=== PATIENT | male | born 1955 | race Caucasian/White ===

== ENCOUNTER → 2017-04-14 | Outpatient (CLI) | payer OTHER ==
[~2017-04-14] MED LIST: REGADENOSON 0.4 MG/5 ML SYRINGE IV ONE
--- NOTE | 2017-04-14 12:25 | EST ---
DATE OF SERVICE: 04/14/2017 AGE: 61Y SEX: M HT: 69" WT: 160 lbs. Lexiscan Cardiolite Stress Test *Heart Rate Blood Pressure *Rest: 83 Rest: 128/57 * *Max. Achieved: 112 Maximum BP: 210/92 85% PMHR: 136 100% PMHR: 160 *METS: - INDICATIONS: Chest pain. MEDICATIONS: - Patient was given Lexiscan injection over a period of 15 seconds. Peak heart rate of 112 was achieved, maximum blood pressure of 210/92 mmHg was noted. Resting EKG shows normal sinus rhythm with normal NV interval and QRS duration and normal ST-T waves. No ST segment depression suggestive of ischemia was noted. FINAL IMPRESSION: 1. There is no evidence of any ST segment depression to suggest ischemia during Lexiscan injection. 2. The results of the nuclear study will follow.
--- NOTE | 2017-04-14 13:09 | NM ---
EXAMINATION TYPE: NM stress lexiscan cardiolite DATE OF EXAM: 04/14/2017 11:29 AM COMPARISON: NONE HISTORY: 61-year-old male chest pain and tachycardia. TECHNIQUE: After the intravenous administration of 10.67 mCi Tc 99m Sestamibi - Cardiolite resting S PECT images acquired 45 minutes post injection. The patient received 0.4mg Lexiscan, 26.5 mCi Tc 99m Sestamibi - Stress images obtained [address] injection FINDINGS: The technologist remarks that the patient could not successfully be gated. Review of stress and rest SPECT images shows possible moderate size area of perfusion abnormality along the mid to basal latera l wall on the coronal images. LVEF could not be calculated. TID is calculated at 0.92, within normal limits. IMPRESSION: Limited exam as the patient could not be successfully gated. LVEF could therefore not be calculated a nd wall motion is not assessed. There is possible moderate sized area of reversibility along the mid to basal lateral wall. Further clinical correlation recommended.
== END | disposition home or self-care (01) ==
LOC: RADNMMAIN 08:20
PROVIDERS: ATTEND Family Medicine
DX: R00.0 Tachycardia, unspecified (principal)
CPT/HCPCS: 93017; 78452; A9500; J2785

== ENCOUNTER → 2018-03-13 | Outpatient (CLI) | payer OTHER ==
--- NOTE | 2018-03-13 10:59 | XR ---
EXAMINATION TYPE: XR chest 2V DATE OF EXAM: 03/13/2018 COMPARISON: NONE HISTORY: Shortness of breath TECHNIQUE: Frontal and lateral views of the chest are obtained. FINDINGS: Scattered senescent parenchymal changes noted. Nodular density right middle lobe. This has been present on prior CT and is compatible with remote gr anulomatous disease. No evidence for infiltrate. No evidence for atelectasis. Heart size is stable. Mediastinal structures are stable and grossly unremarkable. No evidence for hilar prominence. Degenerative changes dorsal spine. IMPRESSION: 1. No evidence for acute pulmonary disease.
== END | disposition home or self-care (01) ==
LOC: RADXRMAIN 10:18
PROVIDERS: ATTEND Family Medicine
DX: J18.9 Pneumonia, unspecified organism (principal)
CPT/HCPCS: 71046

== ENCOUNTER 2020-04-20 12:15 | Inpatient (IN) | payer MEDICARE ==
--- NOTE | 2020-04-20 13:22 | ED ---
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 The states patient was eating his meal this morning when he developed a sudden onset of tonic-clonic seizure that lasted approximately 10 minutes. states afterwards the patient was confused and unable to balance himself. states the patient had nausea and vomiting 2 days ago and one episode of diarrhea yesterday. States this morning the patient had his normal physical therapy and afterwards developed the seizure. Denies any recent changes to medications. Denies any night sweats fevers or chills. History of COPD but no oxygen use at home. - Related Data Home Medications Medication Instructions Recorded Confirmed Aspirin EC [Ecotrin] 325 mg PO DAILY 05/15/19 05/15/19 Atorvastatin [Lipitor] 80 mg PO HS 05/15/19 05/15/19 Clopidogrel [Plavix] 75 mg PO DAILY 05/15/19 05/15/19 Gabapentin [Neurontin] 100 mg PO TID 05/15/19 05/15/19 Isosorbide Mononitrate ER [Imdur] 30 mg PO DAILY 05/15/19 05/15/19 Lisinopril [Zestril] 10 mg PO DAILY 05/15/19 05/15/19 Metoprolol Tartrate [Lopressor] 25 mg PO DAILY 05/15/19 05/15/19 Nitroglycerin Sl Tabs [Nitrostat] 0.4 mg SUBLINGUAL Q5M PRN 05/15/19 05/15/19 Sertraline [Zoloft] 100 mg PO HS 05/15/19 05/15/19 metFORMIN HCL ER [Glucophage Xr] 1,000 mg PO DAILY 05/15/19 05/15/19 Allergies Allergy/AdvReac Type Severity Reaction Status Date / Time No Known Allergies Allergy Verified 05/15/19 11:39 Review of Systems ROS Statement: Those systems with pertinent positive or pertinent negative responses have been documented in the HPI. ROS Other: All systems not noted in ROS Statement are negative. Past Medical History Past Medical History: Chest Pain / Angina, CVA/TIA, Diabetes Mellitus, Hyperlipi demia, Hypertension History of Any Multi-Drug Resistant Organisms: None Reported Past Surgical History: No Surgical Hx Reported Past Psychological History: No Psychological Hx Reported Smoking Status: Former smoker Past Alcohol Use History: None Reported Past Drug Use History: None Reported General Exam Limitations: no limitations General appearance: alert, in no apparent distress Head exam: Present: atraumatic, normocephalic, normal inspection Eye exam: Present: normal appearance, PERRL, EOMI Pupils: Present: normal accommodation ENT exam: Present: normal exam, mucous membranes moist Neck exam: Present: normal inspection, full ROM. Absent: tenderness Respiratory exam: Present: normal lung sounds bilaterally. Absent: respiratory distress, wheezes Cardiovascular Exam: Present: regular rate, normal rhythm, normal heart sounds Extremities exam: Present: normal inspection, full ROM Back exam: Present: normal inspection, full ROM Neurological exam: Present: alert, oriented X3, other (Left-sided paralysis at baseline) Psychiatric exam: Present: normal affect, normal mood Skin exam: Present: warm, dry, intact, normal color Course Vital Signs 04/20/20 04/20/20 04/20/20 12:30 13:00 13:20 Temperature 97.8 F Pulse Rate 92 94 89 Respiratory 22 20 17 Rate Blood Pressure 110/72 96/72 95/73 O2 Sat by Pulse 92 L 95 96 Oximetry 04/20/20 04/20/20 04/20/20 13:40 14:00 14:30 Temperature Pulse Rate 88 82 81 Respiratory 24 19 17 Rate Blood Pressure 105/73 105/73 95/38 O2 Sat by Pulse 97 97 97 Oximetry 04/20/20 15:30 Temperature Pulse Rate 70 Respiratory 15 Rate Blood Pressure 99/66 O2 Sat by Pulse 99 Oximetry Medical Decision Making - Medical Decision Making Patient is 64-year-old male with history of CVA and left-sided paralysis at baseline presenting to emergency Department with a chief complaint of a seizure. Patient was initially hypotensive and started on IV fluids. Patient does have a lactic acid of 8.5 which is likely secondary to the seizure. According to the , this was supposedly tonic clonic seizure with a postictal state. Patient has no previous history of seizures. Slight increase in anion gap secondary to the lactic acidosis. Patient does have leukocytosis of [address] of the brain is negative for new acute processes. I spoke with who would like to admit the patient for further medical management. Case discussed with Neurology on consult - Lab Data Result diagrams: 04/20/20 12:32 04/20/20 12:32 Lab Results 04/20/20 04/20/20 04/20/20 Range/Units 12:32 12:32 13:20 WBC 15.2 H (3.8-10.6) k/uL RBC 5.21 (4.30-5.90) m/uL Hgb 11.5 L (13.0-17.5) gm/dL Hct 38.8 L (39.0-53.0) % MCV 74.4 L (80.0-100.0) fL MCH 22.0 L (25.0-35.0) pg MCHC 29.5 L (31.0-37.0) g/dL RDW 16.5 H (11.5-15.5) % Plt Count 518 H (150-450) k/uL Neutrophils % 79 % Lymphocytes % 14 % Monocytes % 5 % Eosinophils % 1 % Basophils % 0 % Neutrophils # 12.0 H (1.3-7.7) k/uL Lymphocytes # 2.1 (1.0-4.8) k/uL Monocytes # 0.7 (0-1.0) k/uL Eosinophils # 0.1 (0-0.7) k/uL Basophils # 0.1 (0-0.2) k/uL Hypochromasia Slight Anisocytosis Slight Microcytosis Slight Sodium 136 L (137-145) mmol/L Potassium 5.3 H (3.5-5.1) mmol/L Chloride 103 (98-107) mmol/L Carbon Dioxide 18 L (22-30) mmol/L Anion Gap 15 mmol/L BUN 14 (9-20) mg/dL Creatinine 0.84 (0.66-1.25) mg/dL Est GFR (CKD-EPI)AfAm >90 (>60 ml/min/1.73 sqM) Est GFR (CKD-EPI)NonAf >90 (>60 ml/min/1.73 sqM) Glucose 191 H (74-99) mg/dL POC Glucose (mg/dL) (75-99) mg/dL POC Glu Director Of Rehabilitation ID Plasma Lactic Acid Rod 8.5 H* (0.7-2.0) mmol/L Calcium 9.4 (8.4-10.2) mg/dL Total Bilirubin 0.2 (0.2-1.3) mg/dL AST 26 (17-59) U/L ALT 23 (4-49) U/L Alkaline Phosphatase 135 H (38-126) U/L Total Protein 6.7 (6.3-8.2) g/dL Albumin 3.9 (3.5-5.0) g/dL 04/20/20 Range/Units 13:23 WBC (3.8-10.6) k/uL RBC (4.30-5.90) m/uL Hgb (13.0-17.5) gm/dL Hct (39.0-53.0) % MCV (80.0-100.0) fL MCH (25.0-35.0) pg MCHC (31.0-37.0) g/dL RDW (11.5-15.5) % Plt Count (150-450) k/uL Neutrophils % % Lymphocytes % % Monocytes % % Eosinophils % % Basophils % % Neutrophils # (1.3-7.7) k/uL Lymphocytes # (1.0-4.8) k/uL Monocytes # (0-1.0) k/uL Eosinophils # (0-0.7) k/uL Basophils # (0-0.2) k/uL Hypochromasia Anisocytosis Microcytosis Sodium (137-145) mmol/L Potassium (3.5-5.1) mmol/L Chloride (98-107) mmol/L Carbon Dioxide (22-30) mmol/L Anion Gap mmol/L BUN (9-20) mg/dL Creatinine (0.66-1.25) mg/dL Est GFR (CKD-EPI)AfAm (>60 ml/min/1.73 sqM) Est GFR (CKD-EPI)NonAf (>60 ml/min/1.73 sqM) Glucose (74-99) mg/dL POC Glucose (mg/dL) 208 H (75-99) mg/dL POC Glu Director Of Rehabilitation ID Sarah Peres Plasma Lactic Acid Rod (0.7-2.0) mmol/L Calcium (8.4-10.2) mg/dL Total Bilirubin (0.2-1.3) mg/dL AST (17-59) U/L ALT (4-49) U/L Alkaline Phosphatase (38-126) U/L Total Protein (6.3-8.2) g/dL Albumin (3.5-5.0) g/dL - EKG Data EKG Comments: Sinus rhythm. Q waves in lead 3 and aVF.. Similar EKG to 2019 Ventricular rate 92, DE 168, QRS 92, QTC 455. Disposition Clinical Impression: New onset seizure Disposition: ADMITTED IP TO THIS HOSP Condition: Good Instructions (If sedation given, give patient instructions): New-Onset Seizure in Adults (ED) Additional Instructions: She will be admitted Is patient prescribed a controlled substance at d/c from ED?: No Referrals: Jordan Mustafa DO [Primary Care Provider] - 1-2 days Time of Disposition: 16:00
[2020-04-20 13:25] LABS: Glucose,Whole Blood 208 mg/dL (75-99)
[2020-04-20 13:32] LABS: Anisocytosis Slight; Basophils # (A) 0.1 k/uL (0-0.2); Basophils % (A) 0 %; Eosinophils # (A) 0.1 k/uL (0-0.7); Eosinophils % (A) 1 %; HCT 38.8 % (39.0-53.0); HGB 11.5 gm/dL (13.0-17.5); Hypochromasia Slight; Lymphocytes # (A) 2.1 k/uL (1.0-4.8); Lymphocytes % (A) 14 %; MCHC 29.5 g/dL (31.0-37.0); MCV 74.4 fL (80.0-100.0); Mean Platelet Volume 8.8; Microcytosis Slight; Monocytes # (A) 0.7 k/uL (0-1.0); Monocytes % (A) 5 %; Neutrophils % (A) 79 %; Platelet Count 518 k/uL (150-450); RBC 5.21 m/uL (4.30-5.90); RDW 16.5 % (11.5-15.5); WBC 15.2 k/uL (3.8-10.6)
[2020-04-20 13:46] LABS: ALT 23 U/L (4-49); AST 26 U/L (17-59); African American GFR (CKD) >90 (>60 ml/min/1.73 sqM); Albumin 3.9 g/dL (3.5-5.0); Alkaline Phosphatase 135 U/L (38-126); Anion Gap 15 mmol/L; Blood Urea Nitrogen 14 mg/dL (9-20); Calcium 9.4 mg/dL (8.4-10.2); Carbon Dioxide 18 mmol/L (22-30); Chloride 103 mmol/L (98-107); Glucose 191 mg/dL (74-99); Non-African American GFR(CKD) >90 (>60 ml/min/1.73 sqM); Potassium 5.3 mmol/L (3.5-5.1); Sodium 136 mmol/L (137-145); Total Bilirubin 0.2 mg/dL (0.2-1.3); Total Protein 6.7 g/dL (6.3-8.2)
[2020-04-20] MEDS ORDERED: SODIUM CHLORIDE 0.9% 1,000 ML IV STA (13:57)
--- NOTE | 2020-04-20 14:40 | CT ---
EXAMINATION TYPE: CT brain wo con DATE OF EXAM: 04/20/2020 COMPARISON: HISTORY: Seizure activity, history of prior CVA TECHNIQUE: Examination was done in axial plane without intravenous contrast. Coronal and sagittal r econstructions performed. CT DLP: 1217.4 mGycm Automated exposure control for dose reduction was used. FINDINGS: There is no evidence of acute intracranial hemorrhage, acute ischemic changes, mass, mass-effect, or extra-axial fluid collection. There is no effacement of cerebral sulci or basal subarachnoid cister ns. There is no hydrocephalus. There is no midline shift. Kramer-white matter distinction is preserv ed. Mild generalized supratentorial volume loss. Right-sided asymmetric ventriculomegaly secondary to ext ensive encephalomalacia right MCA territory and corresponding volume loss. Some stable linearly distr ibuted calcifications in the region of the right glynn radiata and centrum semiovale. Atheroscleroti c calcifications within the carotid siphons. Trace mucosal thickening ethmoid air cells. Orbits and globes are intact. IMPRESSION: 1. Unchanged mild generalized atrophy and old right MCA territory infarct with associated encephaloma lacia and asymmetric ventriculomegaly on the right. 2. No acute intracranial abnormality seen.
[2020-04-20] MEDS ORDERED: NALOXONE 0.4 MG/ML 1 ML VIAL IV PRN (15:36)
[2020-04-20] MEDS ORDERED: LORazepam 2 MG/ML INJ IV PRN (15:36)
[2020-04-20] MEDS ORDERED: MORPHINE SULFATE 4 MG/ML SYRINGE IV PRN (15:36)
[2020-04-20] MEDS: SODIUM CHLORIDE 0.9% 1,000 ML IV SCH (16:30)
[2020-04-20] MEDS ORDERED: NITROGLYCERIN SL TABS 0.4 MG TAB SUBLINGUAL PRN (17:10)
[2020-04-20] MEDS: SERTRALINE 100 MG TAB PO SCH (20:14)
[2020-04-20] MEDS: ATORVASTATIN 80 MG TAB PO SCH (20:15)
[2020-04-20] MEDS: GABAPENTIN 100 MG CAP PO SCH (20:15)
--- NOTE | 2020-04-20 23:30 | P.CNNES ---
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 Patient never had any history of seizures. Patient lives with his and her daughter. Patient was eating his meal this morning when he developed sudden onset of tonic-clonic seizure that lasted for about 10 minutes. Post ictally, patient was confused and unable to balance himself. Patient had nausea and vomiting 2 days ago and one episode of diarrhea yesterday. This morning patient had his normal physical therapy and afterwards developed the seizure. Patient has history of COPD. Patient arrived to the ER at 12:15 PM. Patient's blood pressure on arrival was 110/72, pulse rate 92 and patient's temperature 97.8. Patient had computed tomography scan of the head, which revealed unchanged mild generalized atrophy and old right MCA territory infarct with associated encephalomalacia and asymmetric ventriculomegaly on the right. No acute process. I reviewed computed tomogra phy scan of the head and agree with the findings. EKG showed normal sinus rhythm with left anterior fascicular block. Patient's WBC 15.2 hemoglobin 11.5, platelets 518. Sodium 136 potassium 5.3 normal renal functions. Liver panel normal. Patient at present feels fine. Patient states he had history of stroke 4 years ago. He has smoked 1-1/2 pack per day since age 19, stopped smoking after his stroke. He has diabetes diagnosed 1-1/2 years ago, also hypertension. No previous history of seizures. Patient currently takes Plavix 75 mg and Lipitor 80 mg. Also on lisinopril metformin gabapentin, metoprolol, sertraline. Review of Systems Patient denies headache, double vision, loss of vision. Patient does have some numbness and weakness of left side from stroke. Denies chest pain shortness of breath wheezing or cough. Denies nausea vomiting diarrhea abdominal pain. All other review of systems unremarkable. Past Medical History Past Medical History: Chest Pain / Angina, CVA/TIA, Diabetes Mellitus, Hyperlipidemia, Hypertension, Sleep Apnea/CPAP/BIPAP History of Any Multi-Drug Resistant Organisms: None Reported Past Surgical History: No Surgical Hx Reported Past Anesthesia/Blood Transfusion Reactions: No Reported Reaction Past Psychological History: No Psychological Hx Reported Smoking Status: Former smoker Past Alcohol Use History: None Reported Past Drug Use History: None Reported - Past Family History Father Additional Family Medical History / Comment(s): spring 2019 of old age Mother Family Medical History: Myocardial Infarction ([place]) Additional Family Medical History / Comment(s): 1997 Medications and Allergies Home Medications Medication Instructions Recorded Confirmed Type Atorvastatin [Lipitor] 80 mg PO HS 05/15/19 04/20/20 History Clopidogrel [Plavix] 75 mg PO DAILY 05/15/19 04/20/20 History Gabapentin [Neurontin] 100 mg PO TID 05/15/19 04/20/20 History Isosorbide Mononitrate ER [Imdur] 30 mg PO DAILY 05/15/19 04/20/20 History Lisinopril [Zestril] 10 mg PO DAILY 05/15/19 04/20/20 History Metoprolol Tartrate [Lopressor] 25 mg PO DAILY 05/15/19 04/20/20 History Sertraline [Zoloft] 100 mg PO HS 05/15/19 04/20/20 History metFORMIN HCL ER [Glucophage Xr] 1,000 mg PO DAILY 05/15/19 04/20/20 History Albuterol Inhaler [Ventolin Hfa 2 puff INHALATION RT-Q6H PRN 04/20/20 04/20/20 History Inhaler] Magnesium Oxide 400 mg PO DAILY 04/20/20 04/20/20 History Menthol [Biofreeze] 1 applic TOPICAL DAILY 04/20/20 04/20/20 History Allergies Allergy/AdvReac Type Severity Reaction Status Date / Time No Known Allergies Allergy Verified 04/20/20 19:08 Physical Examination - Vital Signs Vital Signs: Vital Signs Temp Pulse Pulse Resp BP BP Pulse Ox 04/20/20 20:00 18 04/20/20 18:33 98.2 F 76 18 111/68 98 04/20/20 17:30 99.4 F 62 18 120/74 100 04/20/20 16:30 71 12 110/72 94 L 04/20/20 16:00 75 10 L 102/67 98 04/20/20 15:30 70 15 99/66 99 04/20/20 14:30 81 17 95/38 97 06/01/20 14:00 82 19 105/73 97 04/20/20 13:40 88 24 105/73 97 04/20/20 13:20 89 17 95/73 96 04/20/20 13:00 97.8 F 94 20 96/72 95 04/20/20 12:30 92 22 110/72 92 L Intake and Output 04/20/20 04/20/20 04/21/20 14:59 22:59 06:59 Other: Voiding Method Urinal # Voids 1 Weight 77.111 kg 77.111 kg On examination patient is a late middle aged male, in no acute distress. Patient is alert and awake fully oriented. Patient knows it is April 2020 and that he is in [facility] in [facility] and name of the current president. Speech is slightly dysarthric but no aphasia. On cranial nerve examination pupils are round and reactive to light, visual ferreira are full on confrontation. Extraocular muscles are intact. Patient has mild left-sided facial weakness central type. Tongue protrudes the midline. Palatal elevation and sensation normal. Hearing and shoulder shrug normal. On muscle strength testing the strength is normal in the right arm and right leg. On the left side, his left arm is very spastic, left ankle is about 4-, hip flexion 4-. Patient has brisk reflexes on the left with Babinski on the left. Sensory to to uch feels different in the left side of the body, states as if it is swollen on the left. No ataxia for [id number] on the right, cannot perform on the left. Tone is increased on the left side. Bulk of muscles normal. Gait deferred. No obvious bruit, S1 and S2 audible. Mild peripheral edema. Abdomen soft nontender. Chest is clear. Results - Laboratory Findings CBC and BMP: 04/20/20 12:32 04/20/20 12:32 Abnormal Lab Findings: Abnormal Labs 04/20/20 04/20/20 04/20/20 12:32 12:32 13:20 WBC 15.2 H Hgb 11.5 L Hct 38.8 L MCV 74.4 L MCH 22.0 L MCHC 29.5 L RDW 16.5 H Plt Count 518 H Neutrophils # 12.0 H Sodium 136 L Potassium 5.3 H Carbon Dioxide 18 L Glucose 191 H POC Glucose (mg/dL) Plasma Lactic Acid Rod 8.5 H* Alkaline Phosphatase 135 H 04/20/20 13:23 WBC Hgb Hct MCV MCH MCHC RDW Plt Count Neutrophils # Sodium Potassium Carbon Dioxide Glucose POC Glucose (mg/dL) 208 H Plasma Lactic Acid Rod Alkaline Phosphatase Assessment and Plan Assessment: * 64-year-old male admitted with new onset seizure, likely secondary generalized tonic-clonic seizure. 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 * History of CVA with left hemiparesis 4 years ago. * Hypertension * Diabetes * X tobacco use * Obesity Plan: * EEG in the morning. * Patient may be a candidate for long-term antiepileptic medication. * Neurology will follow.
[2020-04-21] MEDS: SODIUM CHLORIDE 0.9% 1,000 ML IV SCH ×2 (06:24→16:36)
[2020-04-21 07:03] LABS: Glucose,Whole Blood 125 mg/dL (75-99)
[2020-04-21] MEDS: metFORMIN 500 MG TAB PO SCH ×2 (07:53→20:35)
[2020-04-21] MEDS: GABAPENTIN 100 MG CAP PO SCH ×3 (07:53→20:35)
[2020-04-21] MEDS: CLOPIDOGREL 75 MG TAB PO SCH (07:53)
[2020-04-21] MEDS: ISOSORBIDE MONONITRATE ER 30 MG TAB.ER.24H PO SCH (07:53)
[2020-04-21] MEDS: METOPROLOL TARTRATE 25 MG TAB PO SCH (07:54)
[2020-04-21] MEDS: LISINOPRIL 10 MG TAB PO SCH (07:54)
[2020-04-21] MEDS ORDERED: ASPIRIN 325 MG TAB PO SCH (09:00)
[2020-04-21] MEDS ORDERED: ALBUTEROL NEBULIZED 2.5 MG/3 ML INHALATION PRN (10:35)
[2020-04-21 11:25] LABS: Glucose,Whole Blood 133 mg/dL (75-99)
[2020-04-21] MEDS: MAGNESIUM OXIDE 400 MG TAB PO SCH (11:44)
[2020-04-21] MEDS: METHYL SALICYLATE/MENTHOL CREAM 5 OZ TOPICAL SCH (11:46)
[2020-04-21 13:08] LABS: Anisocytosis Slight; HCT 33.4 % (39.0-53.0); HGB 10.3 gm/dL (13.0-17.5); Hypochromasia Marked; MCH 23.4 pg (25.0-35.0); MCHC 30.9 g/dL (31.0-37.0); MCV 75.8 fL (80.0-100.0); Mean Platelet Volume 7.6; Microcytosis Slight; Platelet Count 389 k/uL (150-450); RBC 4.41 m/uL (4.30-5.90); RDW 16.4 % (11.5-15.5)
[2020-04-21 13:21] LABS: African American GFR (CKD) >90 (>60 ml/min/1.73 sqM); Anion Gap 9 mmol/L; Blood Urea Nitrogen 11 mg/dL (9-20); Calcium 8.5 mg/dL (8.4-10.2); Carbon Dioxide 22 mmol/L (22-30); Chloride 105 mmol/L (98-107); Glucose 118 mg/dL (74-99); Non-African American GFR(CKD) >90 (>60 ml/min/1.73 sqM); Potassium 4.4 mmol/L (3.5-5.1); Sodium 136 mmol/L (137-145)
--- NOTE | 2020-04-21 15:47 | EEG ---
ELECTROENCEPHALOGRAM REPORT DATE OF SERVICE: 04/21/2020. PREAMBLE: This is a 64-year-old male with new onset seizure. Patient has history of a stroke. EEG FINDINGS: A routine 21 channel awake EEG recorded utilizing 10/20 international system with bipolar and referential montages. The background consists of well developed, well regulated, moderate voltage activity in 8 Hz alpha. Background is posterior dominant and reactive to eye opening and closing. Photic driving response was seen with some flash frequencies. There is near continuous focal slowing in dysrhythmic delta and theta activity in the right temporal region. Occasional sharp waves were seen in the right mid temporal region. Different stages of sleep were not seen. No electrographic seizures recorded. EKG channel lead revealed no arrhythmia. IMPRESSION: This is an abnormal EEG due to focal slowing with some sharp appearing waves over the right temporal region. This is suggestive of focal cortical neural dysfunction with underlying cortical irritability and tendency for seizures. MMBRITTANYL / IJN: [id number] / DWAYNE
[2020-04-21] MEDS: levETIRAcetam 500 MG TAB PO SCH (16:27)
[2020-04-21 16:49] LABS: Glucose,Whole Blood 142 mg/dL (75-99)
--- NOTE | 2020-04-21 17:12 | P.PN ---
Subjective Progress Note Date: 04/21/20 Patient denies any further seizures. Laying comfortably in the bed. Objective - Vital Signs Vital signs: Vital Signs Temp 97.9 F 04/21/20 15:00 Pulse 54 L 04/21/20 15:00 Resp 16 04/21/20 16:27 BP 89/53 04/21/20 15:00 Pulse Ox 99 04/21/20 15:00 Intake & Output 04/20/20 04/21/20 04/21/20 18:59 06:59 18:59 Output Total 100 500 Balance -100 -500 Weight 77.111 kg Output: Urine 100 500 Other: Voiding Method Urinal Urinal # Voids 1 1 - Exam Unchanged. Laying comfortably in the bed. Continues to have spastic left hemiparesis. - Labs CBC & Chem 7: 04/21/20 12:29 04/21/20 12:29 Labs: Abnormal Lab Results - Last 24 Hours (Table) 04/21/20 04/21/20 04/21/20 Range/Units 07:01 11:23 12:29 WBC 13.0 H (3.8-10.6) k/uL Hgb 10.3 L (13.0-17.5) gm/dL Hct 33.4 L (39.0-53.0) % MCV 75.8 L (80.0-100.0) fL MCH 23.4 L (25.0-35.0) pg MCHC 30.9 L (31.0-37.0) g/dL RDW 16.4 H (11.5-15.5) % Sodium (137-145) mmol/L Creatinine (0.66-1.25) mg/dL Glucose (74-99) mg/dL POC Glucose (mg/dL) 125 H 133 H (75-99) mg/dL 04/21/20 04/21/20 Range/Units 12:29 16:48 WBC (3.8-10.6) k/uL Hgb (13.0-17.5) gm/dL Hct (39.0-53.0) % MCV (80.0-100.0) fL MCH (25.0-35.0) pg MCHC (31.0-37.0) g/dL RDW (11.5-15.5) % Sodium 136 L (137-145) mmol/L Creatinine 0.64 L (0.66-1.25) mg/dL Glucose 118 H (74-99) mg/dL POC Glucose (mg/dL) 142 H (75-99) mg/dL Assessment and Plan Assessment: * 64-year-old male admitted with new onset seizure, likely secondary generalized tonic-clonic seizure. 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 * History of CVA with left hemiparesis 4 years ago. * Hypertension * Diabetes * X tobacco use * Obesity Plan: * EEG revealed focal slowing with some sharp-appearing waves over the right temporal region. This is suggestive of focal cortical neuronal dysfunction with underlying cortical irritability and tendency for seizures. Patient to be started on Keppra 500 mg twice a day. * Neurologically clear for discharge.
[2020-04-21] MEDS ORDERED: ONDANSETRON 4 MG/2 ML VIAL IVP PRN (20:02)
[2020-04-21] MEDS ORDERED: CALCIUM CARBONATE 500 MG CHEWABLE PO PRN (20:02)
[2020-04-21] MEDS ORDERED: MELATONIN 3 MG TABLET PO PRN (20:02)
[2020-04-21] MEDS ORDERED: MAGNESIUM HYDROXIDE 2,400 MG/10 ML CUP PO PRN (20:02)
[2020-04-21] MEDS ORDERED: MAG HYDROX/AL HYDROX/SIMETH 30 ML CUP PO PRN (20:02)
[2020-04-21] MEDS ORDERED: ACETAMINOPHEN TAB 325 MG TAB PO PRN (20:02)
[2020-04-21] MEDS ORDERED: LACTULOSE 20 GM/30 ML CUP PO PRN (20:02)
--- NOTE | 2020-04-21 20:04 | P.HPIM ---
History of Present Illness H&P Date: 04/21/20 Chief Complaint: Shaking History of presenting complaint: This is a pleasant 64-year-old patient of Dr. Mustafa. Chronic stable medical conditions include diabetes, hypertension, hyperlipidemia, arthritis sleep apnea. Patient is had a prior stroke. With left arm and left leg weakness. Patient did use a brace. And a walker. As per the negative from the ER informed him that patient is eating his meal in the morning and he developed sudden onset of tonic-clonic seizures that lasted about 10 minutes. Patient was confused after that unable to balance himself. Patient had some nausea vomiting 2 days before and one episode of diarrhea the day before. Otherwise the morning prior to the episode patient was in normal self. No recent change of medications. We did talk to the patient this morning patient really didn't didn't remember much of the episode. At baseline the speech is also slow. Review of systems: GEN.: Tired EYES: None HEENT: None NECK: None RESPIRATORY: None CARDIOVASCULAR: None GASTROINTESTINAL: None GENITOURINARY: None MUSCULOSKELETAL: None LYMPHATICS: None HEMATOLOGICAL: None PSYCHIATRY: None NEUROLOGICAL: As above and left-sided weakness and speech is slightly slow does use a walker Past medical history to include: Stroke, diabetes, hypertension, hyperlipidemia, obstructive sleep apnea, Social history: Patient did smoke in the past. No alcohol.. . Physical examination: VITAL SIGNS: 97.8, 94, 20, 96/72, peripheral percent on 2 L upon presentation] GENERAL: BMI 24.4, laying in bed, awake. EYES: Pupils equal. Conjunctiva normal. HEENT: External appearance of nose and ears normal, oral cavity grossly normal. NECK: JVD not raised; masses not palpable. HEART: First and second heart sounds are normal; no edema. LUNGS: Respiratory rate normal; decreased breath sounds. ABDOMEN: Soft, nontender, liver spleen not palpable, no masses palpable. PSYCH: Awake able to answer questionsl. NEUROLOGICAL: Cranial nerves grossly intact; no facial asymmetry, speech is slightly slow, power on the left side is 3/5. LYMPHATICS: No lymph nodes palpable in the axilla and neck INVESTIGATIONS, reviewed in the clinical context: White count 15.2 hemoglobin 11.5 platelets 518 potassium 5.3 creatinine 0.84 Lactic acid 8.5, COVID-19 PCR-not detected Computed tomography scan of the brain without contrast-myogenous atrophy with old right MCA territory infarct with associated encephalomalacia, nil acute EKG tracing personally reviewed by me-normal sinus rhythm Assessment: -New onset tonic-clonic seizures in a patient with a prior history of stroke, with encephalomalacia, does increase a property of recurrent strokes. -Left-sided paresis from prior stroke -Diabetes mellitus type 2 -Hyperlipidemia -Essential hypertension -Obstructive sleep apnea Plan: Neuro checks will be done. Seizure precautions. EEG has been ordered. Neurology was consulted. Home medications to continue. Lovenox for DVT prophylaxis. Care was discussed with the patient. Past Medical History Past Medical History: Chest Pain / Angina, CVA/TIA, Diabetes Mellitus, Hyperlipidemia, Hypertension, Sleep Apnea/CPAP/BIPAP History of Any Multi-Drug Resistant Organisms: None Reported Past Surgical History: No Surgical Hx Reported Past Anesthesia/Blood Transfusion Reactions: No Reported Reaction Past Psychological History: No Psychological Hx Reported Smoking Status: Former smoker Past Alcohol Use History: None Reported Past Drug Use History: None Reported - Past Family History Father Additional Family Medical History / Comment(s): spring 2019 of old age Mother Family Medical History: Myocardial Infarction ([place]) Additional Family Medical History / Comment(s): 1997 Medications and Allergies Home Medications Medication Instructions Recorded Confirmed Type Atorvastatin [Lipitor] 80 mg PO HS 05/15/19 04/20/20 History Clopidogrel [Plavix] 75 mg PO DAILY 05/15/19 04/20/20 History Gabapentin [Neurontin] 100 mg PO TID 05/15/19 04/20/20 History Isosorbide Mononitrate ER [Imdur] 30 mg PO DAILY 05/15/19 04/20/20 History Lisinopril [Zestril] 10 mg PO DAILY 05/15/19 04/20/20 History Metoprolol Tartrate [Lopressor] 25 mg PO DAILY 05/15/19 04/20/20 History Sertraline [Zoloft] 100 mg PO HS 05/15/19 04/20/20 History metFORMIN HCL ER [Glucophage Xr] 1,000 mg PO DAILY 05/15/19 04/20/20 History Albuterol Inhaler [Ventolin Hfa 2 puff INHALATION RT-Q6H PRN 04/20/20 04/20/20 History Inhaler] Magnesium Oxide 400 mg PO DAILY 04/20/20 04/20/20 History Menthol [Biofreeze] 1 applic TOPICAL DAILY 04/20/20 04/20/20 History Allergies Allergy/AdvReac Type Severity Reaction Status Date / Time No Known Allergies Allergy Verified 04/20/20 19:08 Physical Exam Vitals: Vital Signs Temp Pulse Pulse Resp BP BP Pulse Ox 04/21/20 07:00 97.8 F 64 17 109/68 99 04/21/20 04:00 16 04/21/20 02:05 97.7 F 67 16 131/83 98 04/20/20 20:00 18 04/20/20 18:33 98.2 F 76 18 111/68 98 04/20/20 17:30 99.4 F 62 18 120/74 100 04/20/20 16:30 71 12 110/72 94 L 04/20/20 16:00 75 10 L 102/67 98 04/20/20 15:30 70 15 99/66 99 04/20/20 14:30 81 17 95/38 97 04/20/20 14:00 82 19 105/73 97 04/20/20 13:40 88 24 105/73 97 04/20/20 13:20 89 17 95/73 96 04/20/20 13:00 97.8 F 94 20 96/72 95 04/20/20 12:30 92 22 110/72 92 L Intake and Output 04/20/20 04/21/20 04/21/20 22:59 06:59 14:59 Output Total 100 Balance -100 Output: Urine 100 Other: Voiding Method Urinal Urinal # Voids 1 1 Weight 77.111 kg Results CBC & Chem 7: 04/21/20 12:29 04/21/20 12:29 Labs: Abnormal Lab Results - Last 24 Hours (Table) 04/20/20 04/20/20 04/20/20 Range/Units 12:32 12:32 13:20 WBC 15.2 H (3.8-10.6) k/uL Hgb 11.5 L (13.0-17.5) gm/dL Hct 38.8 L (39.0-53.0) % MCV 74.4 L (80.0-100.0) fL MCH 22.0 L (25.0-35.0) pg MCHC 29.5 L (31.0-37.0) g/dL RDW 16.5 H (11.5-15.5) % Plt Count 518 H (150-450) k/uL Neutrophils # 12.0 H (1.3-7.7) k/uL Sodium 136 L (137-145) mmol/L Potassium 5.3 H (3.5-5.1) mmol/L Carbon Dioxide 18 L (22-30) mmol/L Glucose 191 H (74-99) mg/dL POC Glucose (mg/dL) (75-99) mg/dL Plasma Lactic Acid Rod 8.5 H* (0.7-2.0) mmol/L Alkaline Phosphatase 135 H (38-126) U/L 04/20/20 04/21/20 Range/Units 13:23 07:01 WBC (3.8-10.6) k/uL Hgb (13.0-17.5) gm/dL Hct (39.0-53.0) % MCV (80.0-100.0) fL MCH (25.0-35.0) pg MCHC (31.0-37.0) g/dL RDW (11.5-15.5) % Plt Count (150-450) k/uL Neutrophils # (1.3-7.7) k/uL Sodium (137-145) mmol/L Potassium (3.5-5.1) mmol/L Carbon Dioxide (22-30) mmol/L Glucose (74-99) mg/dL POC Glucose (mg/dL) 208 H 125 H (75-99) mg/dL Plasma Lactic Acid Rod (0.7-2.0) mmol/L Alkaline Phosphatase (38-126) U/L Thrombosis Risk Factor Assmnt - Choose All That Apply Each Risk Factor Represents 2 Points: Age 61-74 years Thrombosis Risk Factor Assessment Total Risk Factor Score: 2 Thrombosis Risk Factor Assessment Level: Low Risk
[2020-04-21] MEDS: ATORVASTATIN 80 MG TAB PO SCH (20:35)
[2020-04-21] MEDS: SERTRALINE 100 MG TAB PO SCH (20:35)
[2020-04-21 20:51] LABS: Glucose,Whole Blood 128 mg/dL (75-99)
[2020-04-21] MEDS: INSULIN ASPART (NovoLOG) 100 UNIT/ML VIAL SQ SCH (20:59)
[2020-04-21] MEDS: ENOXAPARIN 40 MG/0.4 ML SYRINGE SQ SCH (21:38)
[2020-04-22] MEDS: levETIRAcetam 500 MG TAB PO SCH ×2 (00:27→06:57)
[2020-04-22] MEDS: LISINOPRIL 10 MG TAB PO SCH (06:57)
[2020-04-22] MEDS: CLOPIDOGREL 75 MG TAB PO SCH (06:57)
[2020-04-22] MEDS: GABAPENTIN 100 MG CAP PO SCH (06:57)
[2020-04-22] MEDS: METOPROLOL TARTRATE 25 MG TAB PO SCH (06:57)
[2020-04-22] MEDS: metFORMIN 500 MG TAB PO SCH (06:57)
[2020-04-22] MEDS: ENOXAPARIN 40 MG/0.4 ML SYRINGE SQ SCH (06:58)
[2020-04-22] MEDS: METHYL SALICYLATE/MENTHOL CREAM 5 OZ TOPICAL SCH (06:58)
[2020-04-22] MEDS: MAGNESIUM OXIDE 400 MG TAB PO SCH (06:58)
[2020-04-22] MEDS: ISOSORBIDE MONONITRATE ER 30 MG TAB.ER.24H PO SCH (06:58)
[2020-04-22 07:02] VITALS: BP 117/72; PULSE 66; RESP 14; TEMP 98
[2020-04-22 07:27] LABS: Glucose,Whole Blood 118 mg/dL (75-99)
[2020-04-22] MEDS: INSULIN ASPART (NovoLOG) 100 UNIT/ML VIAL SQ SCH ×2 (07:37→11:51)
[2020-04-22] MEDS ORDERED: ASPIRIN 81 MG PO SCH (09:00)
[2020-04-22 11:50] LABS: Glucose,Whole Blood 154 mg/dL (75-99)
--- NOTE | 2020-04-22 20:46 | P.DS ---
Providers Date of admission: 04/20/20 15:46 Expected date of discharge: 04/22/20 Attending physician: Rashid Bauer Consults: 04/20/20 15:36 Consult Physician Stat Consulting Provider: Pao Gray Consult Reason/Comments: New-onset seizure Do you want consulting provider notified?: Yes Primary care physician: Jordan Ramsey [facility] Course: Chief Complaint: Shaking History of presenting complaint: This is a pleasant 64-year-old patient of Dr. Mustafa. Chronic stable medical conditions include diabetes, hypertension, hyperlipidemia, arthritis sleep apnea. Patient is had a prior stroke. With left arm and left leg weakness. Patient did use a brace. And a walker. As per the negative from the ER informed him that patient is eating his meal in the morning and he developed sudden onset of tonic-clonic seizures that lasted about 10 minutes. Patient was confused after that unable to balance himself. Patient had some nausea vomiting 2 days before and one episode of diarrhea the day before. Otherwise the morning prior to the episode patient was in normal self. No recent change of medications. We did talk to the patient this morning patient really didn't didn't remember much of the episode. At baseline the speech is also slow. Started on Keppra. Today. Laying in bed.. Comfortable. No new issues. Consultation: Dr. Alanis-neurology Physical examination: VITAL SIGNS: 98, 66, 14, 117/72, 95% on room air GENERAL: laying in bed, awake. EYES: Pupils equal. Conjunctiva normal. HEENT: External appearance of nose and ears normal, oral cavity grossly normal. NECK: JVD not raised; masses not palpable. HEART: First and second heart sounds are normal; no edema. LUNGS: Respiratory rate normal; decreased breath sounds. ABDOMEN: Soft, nontender, liver spleen not palpable, no masses palpable. PSYCH: Awake able to answer questionsl. NEUROLOGICAL: Cranial nerves grossly intact; no facial asymmetry, speech is slightly slow, power on the left side is 3/5. INVESTIGATIONS, reviewed in the clinical context: White count 15.2 hemoglobin 11.5 platelets 518 potassium 5.3 creatinine 0.84 Lactic acid 8.5, COVID-19 PCR-not detected Computed tomography scan of the brain without contrast-myogenous atrophy with old right MCA territory infarct with associated encephalomalacia, nil acute EKG tracing personally reviewed by me-normal sinus rhythm AG-showing focal slowing with some sharp appearing waves over the right temporal region. Assessment: -New onset tonic-clonic seizures in a patient with a prior history of stroke, with encephalomalacia,. POA -Left-sided paresis from prior stroke -Diabetes mellitus type 2 -Hyperlipidemia -Essential hypertension -Obstructive sleep apnea Disposition: Home Patient Condition at Discharge: Good Plan - Discharge Summary Discharge Rx Participant: No New Discharge Prescriptions: New levETIRAcetam [Keppra] 500 mg PO Q12HR #60 tab Continue Sertraline [Zoloft] 100 mg PO HS Gabapentin [Neurontin] 100 mg PO TID Clopidogrel [Plavix] 75 mg PO DAILY metFORMIN HCL ER [Glucophage Xr] 1,000 mg PO DAILY Lisinopril [Zestril] 10 mg PO DAILY Isosorbide Mononitrate ER [Imdur] 30 mg PO DAILY Atorvastatin [Lipitor] 80 mg PO HS Menthol [Biofreeze] 1 applic TOPICAL DAILY Albuterol Inhaler [Ventolin Hfa Inhaler] 2 puff INHALATION RT-Q6H PRN PRN Reason: Shortness Of Breath Magnesium Oxide 400 mg PO DAILY Changed Metoprolol Tartrate [Lopressor] 12.5 mg PO BID #0 Discharge Medication List Atorvastatin [Lipitor] 80 mg PO HS 05/15/19 [History] Clopidogrel [Plavix] 75 mg PO DAILY 05/15/19 [History] Gabapentin [Neurontin] 100 mg PO TID 05/15/19 [History] Isosorbide Mononitrate ER [Imdur] 30 mg PO DAILY 05/15/19 [History] Lisinopril [Zestril] 10 mg PO DAILY 05/15/19 [History] Sertraline [Zoloft] 100 mg PO HS 05/15/19 [History] metFORMIN HCL ER [Glucophage Xr] 1,000 mg PO DAILY 05/15/19 [History] Albuterol Inhaler [Ventolin Hfa Inhaler] 2 puff INHALATION RT-Q6H PRN 04/20/20 [History] Magnesium Oxide 400 mg PO DAILY 04/20/20 [History] Menthol [Biofreeze] 1 applic TOPICAL DAILY 04/20/20 [History] Metoprolol Tartrate [Lopressor] 12.5 mg PO BID #0 04/22/20 [Rx] levETIRAcetam [Keppra] 500 mg PO Q12HR #60 tab 04/22/20 [Rx] Follow up Appointment(s)/Referral(s): neurology, [Other] - 2 Weeks [facility], [NON-STAFF] - Jordan Mustafa DO [Primary Care Provider] - 04/28/20 1:30 pm Patient Instructions/Handouts: New-Onset Seizure in Adults (ED) Activity/Diet/Wound Care/Special Instructions: seizure precautions Discharge Disposition: HOME SELF-CARE
== END 2020-04-22 14:18 | disposition home or self-care (01) | DRG 101 ==
LOC: EC 12:15 → 4SSUR 15:46
PROVIDERS: ADMIT Hospitalist; ATTEND Hospitalist
DX: G40.409 Other generalized epilepsy and epileptic syndromes, not intractable, without status epilepticus (principal); I69.354 Hemiplegia and hemiparesis following cerebral infarction affecting left non-dominant side; D72.829 Elevated white blood cell count, unspecified; E11.9 Type 2 diabetes mellitus without complications; E66.9 Obesity, unspecified; Z68.24 Body mass index [BMI] 24.0-24.9, adult; E78.5 Hyperlipidemia, unspecified; G47.33 Obstructive sleep apnea (adult) (pediatric); I10 Essential (primary) hypertension; I44.4 Left anterior fascicular block; J44.9 Chronic obstructive pulmonary disease, unspecified; M19.90 Unspecified osteoarthritis, unspecified site; Z79.02 Long term (current) use of antithrombotics/antiplatelets; Z79.82 Long term (current) use of aspirin; Z79.84 Long term (current) use of oral hypoglycemic drugs; Z79.899 Other long term (current) drug therapy; Z82.49 Family history of ischemic heart disease and other diseases of the circulatory system; Z87.891 Personal history of nicotine dependence; Z11.59 Encounter for screening for other viral diseases; G93.89 Other specified disorders of brain
CPT/HCPCS: 36415; 70450; 80048; 80053; 83605; 85025; 85027; 93005; 95819; 96360; 96361; 99285

== ENCOUNTER → 2022-06-21 | Outpatient (CLI) | payer MEDICARE | LOC: CPPFTMAIN 12:20 | PROVIDERS: ATTEND Family Medicine | DX: J44.9 Chronic obstructive pulmonary disease, unspecified (principal); Z87.891 Personal history of nicotine dependence | CPT/HCPCS: 94060; 94726; 94729 ==

== ENCOUNTER → 2023-12-06 | Outpatient (CLI) | payer MEDICARE, OTHER ==
--- NOTE | 2023-12-06 13:33 | CTL ---
EXAMINATION TYPE: CT Low Dose Lung DATE OF EXAM: 12/06/2023 12:27 PM CLINICAL INDICATION:Male, 68 years old with history of Z12.2,Z87.891; History of nicotine dependence. , history of tobacco use. COMPARISON: 05/09/2016. TECHNIQUE: Multiple axial non-contrast scans were obtained from approximately the lung apices through the upper abdomen. Coronal and sagittal reformatted images were obtained. Low dose technique was uti lized. CT DLP: 76.4 mGycm, Automated exposure control for dose reduction was used. CT Contrast: Contrast used: None Oral contrast used: None FINDINGS: ======== Lack of intravenous contrast and low dose technique limits the evaluation of the vascular and soft ti ssue structures. LUNGS: No evidence of pulmonary fibrosis. No evidence of focal consolidation, pneumothorax or pleural effusion. Mild centrilobular emphysema changes. Nodules: RUL: None. RML: Calcified granuloma series 5 image 26. RLL: None. SIMON: None. LLL: None. AIRWAY: Patent and unremarkable. HEART: Size within normal limits. Coronary artery atherosclerosis. MEDIASTINUM: No gross evidence of adenopathy. VASCULATURE: No aortic aneurysm. MUSCULOSKELETAL: Moderate disc degeneration changes are present throughout the thoracolumbar spine. SOFT TISSUES/LYMPH NODES: Unremarkable. LOWER NECK: No significant findings. UPPER ABDOMEN: No significant findings. IMPRESSION: 1. No clinically significant pulmonary nodules. 2. Mild emphysema. CT LUNG RAD AND CT CHEST RECOMMENDATION: Lung-Rad 2 Benign Appearance or Behavior: Continue annual sc reening with LDCT in 12 months. S Modifier (other clinically significant findings): None Recommend smoking cessation (if current smoker), or continuation of smoking cessation (if prior smoke r). Annual screening for lung cancer with low-dose computed tomography is recommended in adults ages 55 to 77 years who have a 30 pack-year smoking history and currently smoke or have quit within the pa st 15 years. Screening should be discontinued once a person has not smoked for 15 years or develops a health problem that substantially limits life expectancy or the ability or willingness to have curat lashon lung surgery. Lung rads 2021 [email or web address]
== END | disposition home or self-care (01) ==
LOC: RADCTMAIN 12:06
PROVIDERS: ATTEND Family Medicine
DX: Z12.2 Encounter for screening for malignant neoplasm of respiratory organs (principal); J43.9 Emphysema, unspecified; Z87.891 Personal history of nicotine dependence
CPT/HCPCS: 71271

== ENCOUNTER → 2024-05-28 | Outpatient (CLI) | payer MEDICARE ==
--- NOTE | 2024-05-28 13:35 | US ---
EXAMINATION TYPE: US Aorta Screening DATE OF EXAM: 05/28/2024 COMPARISON: NONE CLINICAL INDICATION: Male, 68 years old with history of Z13.6 Screening for AAA; Screening, previous smoker TECHNIQUE: Multiple sonographic images of the abdominal aorta are obtained. FINDINGS: EXAM MEASUREMENTS: Abdominal Aorta: Proximal: 2.1 x 2.4 cm Mid: 1.9 x 1.8 cm Distal: 1.8 x 1.9 cm Bifurcation: Right Iliac: 0.8 x 1.0 cm Left Iliac: 0.8 x 0.8 cm [employer] NOTES: Suboptimal due to patient body habitus. No AAA visualized. Limited visualizat ion of proximal Ao. IMPRESSION: No evidence for aortic aneurysm.
== END | disposition home or self-care (01) ==
LOC: RADUSWWP 09:40
PROVIDERS: ATTEND Family Medicine
DX: Z13.6 Encounter for screening for cardiovascular disorders (principal); Z87.891 Personal history of nicotine dependence
CPT/HCPCS: 76706